=== PATIENT | female | born 1945 | race Caucasian/White ===

== ENCOUNTER 2022-06-03 12:00 | Inpatient (IN) | payer MEDICARE, BC ==
[~2022-06-03 12:00] MED LIST: Iopamidol-370 76% 500 ML 1 ML ONE
[2022-06-03 12:21] LABS: #Eosinphils 0.2 thou/uL (0.0-0.7); #Lymphocytes 2.1 thou/uL (1.20-3.40); #Monocytes 0.8 thou/uL (0.11-0.59); #Neutrophils 12.6 thou/uL (1.40-6.50); %Basophils 0.2 % (0.0-1.0); %Eosinophils 1.4 % (0.0-10.0); %Lymphocytes 13.2 % (21.0-51.0); %Monocytes 5.1 % (0.0-10.0); %Neutrophils 80.1 % (42.0-75.0); Hemoglobin 10.9 g/dL (12.0-16.0); Mean Corpuscular HGB CONC 33.9 g/dL (32.0-36.0); Mean Corpuscular Hemoglobin 31.8 pg (27.0-31.0); Mean Corpuscular Volume 93.7 fl (78.0-98.0); Platelet Count 325 10x3/uL (130-400); RBC Distribution Width 12.8 % (11.5-14.5); Red Blood Cell (RBC) Count 3.44 mill/uL (4.20-5.40); White Blood Cell (WBC) Count 15.7 10x3/uL (4.8-10.8)
[2022-06-03 12:30] LABS: PTT 44.1 sec (22.9-36.1); Prothrombin Time 14.2 sec (12.0-14.7)
[2022-06-03] MEDS ORDERED: Ondansetron PF 4 MG/2 ML Vial ONE (12:32)
[2022-06-03 12:35] LABS: INR-International Normal Ratio 1.1
[2022-06-03 12:40] LABS: ALT (SGPT) 31 U/L (8-55); AST (SGOT) 22 U/L (5-34); Alkaline Phosphatase 92 U/L (40-110); Anion Gap 21 mmol/L (10-20); BUN (Urea Nitrogen) 45 mg/dL (9.8-20.1); Bilirubin, Total 0.2 mg/dL (0.2-1.2); CK (CPK) 112 U/L (29-168); Calc. Creatinine Clearance 0 mL/min (70-130); Calcium 9.7 mg/dL (7.8-10.44); Carbon Dioxide 20 mmol/L (23-31); Chloride 98 mmol/L (98-107); Estimated GFR 34; Glucose 162 mg/dL (83-110); Potassium 5.8 mmol/L (3.5-5.1); Sodium 133 mmol/L (136-145)
[2022-06-03 13:00] LABS: Acetaminophen Less than 10.0 mcg/mL (10.0-30.0); Alcohol Less than 10 mg/dL (Less than 10); Salicylate Less than 8.0 mg/dL (15.0-30.0)
[2022-06-03] MEDS ORDERED: Aspirin Chewable 81 MG TAB ONE (13:24)
[2022-06-03 14:02] LABS: SARS-CoV-2 NAA Rapid Test Not Detected (NotDetected)
[2022-06-03 14:33] LABS: Bilirubin Negative (Negative); Blood, Urine Trace (Negative); Clarity Turbid (Clear); Glucose, Urine (Dipstick) Normal (Negative); Ketone, Urine Negative (Negative); Leukocyte 500 Leu/uL (Negative); Nitrite 2+ (Negative); Protein, Urine (Dipstick) 10 mg/dL (Neg-Trace); Specific Gravity, Urine 1.028 (1.002-1.036); Squamous Epithelial 0-3 HPF (0-3); Urobilinogen Normal mg/dL (Less than 2); WBC/HPF Greater than 50 HPF (0-3); pH, Urine 5.5 (5.0-9.0)
[2022-06-03 14:39] LABS: Bacteria/HPF 3+ HPF (None Seen)
[2022-06-03 14:40] LABS: Amphetamine Not Detected (NotDetected); Barbiturates Screen Not Detected (NotDetected); Benzodiazepine Screen Not Detected (NotDetected); Cocaine Metabolite Screen Not Detected (NotDetected); Methadone Not Detected (NotDetected); Methamphetamine Not Detected (NotDetected); Opiate Screen Detected (NotDetected); Oxycodone Screen Not Detected (NotDetected); Phencyclidine (PCP) Not Detected (NotDetected); THC/Cannabinoid Screen Not Detected (NotDetected); Tricyclic Screen Not Detected (NotDetected)
[2022-06-03] MEDS ORDERED: cefTRIAXone\\ROCEPHIN 1 GM VIAL ONE (15:25)
[2022-06-03 15:52] LABS: Anion Gap 19 mmol/L (10-20); BUN (Urea Nitrogen) 45 mg/dL (9.8-20.1); Calc. Creatinine Clearance 0 mL/min (70-130); Calcium 9.3 mg/dL (7.8-10.44); Carbon Dioxide 18 mmol/L (23-31); Chloride 98 mmol/L (98-107); Estimated GFR 38; Glucose 132 mg/dL (83-110); Sodium 129 mmol/L (136-145)
[2022-06-03 15:56] LABS: Potassium 6.1 mmol/L (3.5-5.1)
[2022-06-03 15:58] LABS: Troponin I 0.012 ng/mL (< 0.028)
[2022-06-03] MEDS ORDERED: Calcium Gluc 4.6 MEQ/10 ML (100 MG/ML) SLOW IVP SCH (16:19)
[2022-06-03] MEDS ORDERED: Insulin Regular 300 UNITS/3 ML VIAL IVP SCH (16:20)
[2022-06-03] MEDS ORDERED: Dextrose 50% Abboject 50 ML SYRINGE SLOW IVP SCH (16:21)
[2022-06-03] MEDS ORDERED: Ondansetron PF 4 MG/2 ML Vial IVP PRN (16:30)
[2022-06-03] MEDS ORDERED: Senokot S 8.6-50 MG TAB PO PRN (16:30)
[2022-06-03] MEDS ORDERED: Ondansetron ODT 4 MG TAB PO PRN (16:30)
[2022-06-03] MEDS ORDERED: Albuterol Sulfate 2.5 mg/0.5 ml Neb NEB SCH (16:30)
[2022-06-03] MEDS ORDERED: Sodium Chloride 0.9% 1,000 ML IV SCH (17:15)
[2022-06-03 18:02] VITALS: BMI 27.4
[2022-06-03 19:29] LABS: Magnesium 1.8 mg/dL (1.6-2.6)
[2022-06-03 19:34] LABS: Troponin I Less than 0.010 ng/mL (< 0.028)
[2022-06-03 19:34] LABS: Anion Gap 19 mmol/L (10-20); BUN (Urea Nitrogen) 46 mg/dL (9.8-20.1); Calc. Creatinine Clearance 31 mL/min (70-130); Calcium 9.6 mg/dL (7.8-10.44); Carbon Dioxide 16 mmol/L (23-31); Chloride 99 mmol/L (98-107); Estimated GFR 35; Potassium 5.1 mmol/L (3.5-5.1); Sodium 129 mmol/L (136-145)
[2022-06-03 19:39] LABS: Glucose 419 mg/dL (83-110)
[2022-06-03] MEDS ORDERED: Dextrose 50% Abboject 50 ML SYRINGE SLOW IVP PRN (19:50)
[2022-06-03] MEDS ORDERED: Dextrose 5% in Water 1,000 ML IV PRN (19:50)
[2022-06-03] MEDS: HumaLOG 300 UNITS/3 ML VIAL SC PRN (20:09)
[2022-06-03] MEDS: Enoxaparin Sodium 30 MG/0.3 ML SYRINGE SC SCH (20:14)
[2022-06-03] MEDS: Acetaminophen 325 MG TAB PO PRN (22:05)
[2022-06-03] MEDS ORDERED: Gabapentin 100 MG CAP PO SCH (23:45)
[2022-06-03] MEDS: tiZANidine HCl 4 MG TAB PO PRN (23:58)
[2022-06-04] MEDS ORDERED: Methyl Salicylate/Menthol 85 GM TUBE TOP PRN (02:17)
[2022-06-04] MEDS: Acetaminophen 325 MG TAB PO PRN (04:15)
[2022-06-04] MEDS ORDERED: Morphine 4 MG/ML VIAL SLOW IVP SCH (05:30)
[2022-06-04 05:46] LABS: Hemoglobin A1c 7.5 % (4.0-6.0)
[2022-06-04 06:02] LABS: Anion Gap 16 mmol/L (10-20); BUN (Urea Nitrogen) 44 mg/dL (9.8-20.1); Calc. Creatinine Clearance 39 mL/min (70-130); Calcium 9.1 mg/dL (7.8-10.44); Carbon Dioxide 19 mmol/L (23-31); Cardiac Risk 4.1 (Less than 4.5); Chloride 100 mmol/L (98-107); Cholesterol 95 mg/dl (< 200 Desired); Estimated GFR 46; Glucose 176 mg/dL (83-110); HDL Cholesterol 23 mg/dL (>60 Neg Risk); LDL Cholesterol, Calculated 50 mg/dL; Potassium 5.6 mmol/L (3.5-5.1); Sodium 129 mmol/L (136-145); Triglycerides 110 mg/dL (Less than 150)
[2022-06-04 06:19] LABS: Band 14 % (5-11); Eosinophils 1 % (0-10); Hemoglobin 9.9 g/dL (12.0-16.0); Lymphocytes 19 % (21-51); MDiff Complete? YES; Mean Corpuscular Hemoglobin 32.1 pg (27.0-31.0); Mean Corpuscular Volume 94.5 fl (78.0-98.0); Mean Platelet Volume 7.5 fL (7.4-10.4); Monocytes 9 % (0-10); Neutrophil 57 % (42-75); Platelet Count 300 10x3/uL (130-400); Platelet Morphology Comment Appears Adequate; RBC Distribution Width 12.8 % (11.5-14.5); RBC Morphology Normal; Red Blood Cell (RBC) Count 3.07 mill/uL (4.20-5.40); White Blood Cell (WBC) Count 15.4 10x3/uL (4.8-10.8)
[2022-06-04] MEDS: HumaLOG 300 UNITS/3 ML VIAL SC PRN ×3 (06:44→22:14)
[2022-06-04] MEDS ORDERED: LOKELMA 10 GM PACKET PO SCH (08:30)
[2022-06-04] MEDS ORDERED: Dextrose 50% Abboject 50 ML SYRINGE SLOW IVP SCH (08:30)
[2022-06-04] MEDS ORDERED: Insulin Regular 300 UNITS/3 ML VIAL IVP SCH (08:30)
[2022-06-04] MEDS: Gabapentin 100 MG CAP PO SCH ×3 (10:06→22:11)
[2022-06-04] MEDS: Dextrose 10% in Water 250 ML IV SCH ×6 (10:07→14:33)
[2022-06-04] MEDS: tiZANidine HCl 4 MG TAB PO PRN ×2 (10:39→22:21)
[2022-06-04] MEDS ORDERED: Acetaminophen/Codeine 30-300mg Tablet PO PRN (11:07)
[2022-06-04] MEDS ORDERED: HYDROcodone/Acetaminophen 10/325 mg Tablet PO SCH (15:15)
[2022-06-04] MEDS: cefTRIAXone\\ROCEPHIN 1 GM in Sodium Chloride 0.9% 100 ML IVPB SCH (17:03)
[2022-06-04] MEDS: Acetaminophen/Codeine 30-300mg Tablet PO PRN (22:11)
[2022-06-04] MEDS: Atorvastatin Calcium 40 MG TAB PO SCH (22:11)
[2022-06-04] MEDS: Enoxaparin Sodium 30 MG/0.3 ML SYRINGE SC SCH (22:12)
[2022-06-05] MEDS: Acetaminophen/Codeine 30-300mg Tablet PO PRN ×4 (04:26→22:49)
[2022-06-05] MEDS: HumaLOG 300 UNITS/3 ML VIAL SC PRN ×4 (05:50→22:46)
[2022-06-05 06:28] LABS: Mean Corpuscular HGB CONC 33.5 g/dL (32.0-36.0); Mean Corpuscular Hemoglobin 31.4 pg (27.0-31.0); Mean Corpuscular Volume 93.9 fl (78.0-98.0); Mean Platelet Volume 6.8 fL (7.4-10.4); Platelet Count 331 10x3/uL (130-400); RBC Distribution Width 12.9 % (11.5-14.5); Red Blood Cell (RBC) Count 3.18 mill/uL (4.20-5.40); White Blood Cell (WBC) Count 12.4 10x3/uL (4.8-10.8)
[2022-06-05 06:46] LABS: Anion Gap 15 mmol/L (10-20); BUN (Urea Nitrogen) 20 mg/dL (9.8-20.1); Calc. Creatinine Clearance 58 mL/min (70-130); Calcium 9.1 mg/dL (7.8-10.44); Carbon Dioxide 21 mmol/L (23-31); Chloride 101 mmol/L (98-107); Estimated GFR 75; Glucose 202 mg/dL (83-110); Sodium 132 mmol/L (136-145)
[2022-06-05 06:49] LABS: Band 16 % (5-11); Eosinophils 2 % (0-10); Hemoglobin 9.9 g/dL (12.0-16.0); Hypochromia SLIGHT = 6-15 cells (100X) (0-5/hpf); Lymphocytes 17 % (21-51); MDiff Complete? YES; Mean Corpuscular HGB CONC 32.7 g/dL (32.0-36.0); Mean Corpuscular Hemoglobin 30.7 pg (27.0-31.0); Mean Corpuscular Volume 94.1 fl (78.0-98.0); Monocytes 7 % (0-10); Neutrophil 58 % (42-75); Platelet Count 337 10x3/uL (130-400); Platelet Morphology Comment Appears Adequate; RBC Distribution Width 12.7 % (11.5-14.5); Red Blood Cell (RBC) Count 3.21 mill/uL (4.20-5.40); White Blood Cell (WBC) Count 12.5 10x3/uL (4.8-10.8)
[2022-06-05] MEDS: Gabapentin 100 MG CAP PO SCH ×3 (09:23→20:35)
[2022-06-05] MEDS: Acetaminophen 325 MG TAB PO PRN ×2 (09:25→20:36)
[2022-06-05] MEDS: Aspirin 81 mg Enteric Coated Tablet PO SCH (09:25)
[2022-06-05] MEDS: tiZANidine HCl 4 MG TAB PO PRN ×2 (10:59→20:36)
[2022-06-05] MEDS: cefTRIAXone\\ROCEPHIN 1 GM in Sodium Chloride 0.9% 100 ML IVPB SCH (15:38)
[2022-06-05] MEDS: metFORMIN 500 MG TAB PO SCH (16:49)
[2022-06-05] MEDS: Enoxaparin Sodium 30 MG/0.3 ML SYRINGE SC SCH (20:34)
[2022-06-05] MEDS: Senokot S 8.6-50 MG TAB PO SCH (20:35)
[2022-06-05] MEDS: Escitalopram Oxalate 10 mg Tablet PO SCH (20:36)
[2022-06-05] MEDS: Rosuvastatin 10 MG TAB PO SCH (22:47)
[2022-06-05] MEDS: Atorvastatin Calcium 40 MG TAB PO SCH (22:48)
[2022-06-06] MEDS ORDERED: HYDROcodone/Acetaminophen 5/325 mg Tablet PO SCH (03:15)
[2022-06-06 05:47] LABS: Hemoglobin 10.1 g/dL (12.0-16.0); Mean Corpuscular HGB CONC 33.1 g/dL (32.0-36.0); Mean Corpuscular Hemoglobin 30.9 pg (27.0-31.0); Mean Corpuscular Volume 93.4 fl (78.0-98.0); Mean Platelet Volume 6.9 fL (7.4-10.4); Platelet Count 361 10x3/uL (130-400); RBC Distribution Width 12.8 % (11.5-14.5); Red Blood Cell (RBC) Count 3.28 mill/uL (4.20-5.40); White Blood Cell (WBC) Count 10.9 10x3/uL (4.8-10.8)
[2022-06-06 06:04] LABS: Anion Gap 13 mmol/L (10-20); BUN (Urea Nitrogen) 20 mg/dL (9.8-20.1); Calc. Creatinine Clearance 62 mL/min (70-130); Calcium 9.3 mg/dL (7.8-10.44); Carbon Dioxide 23 mmol/L (23-31); Chloride 103 mmol/L (98-107); Estimated GFR 81; Glucose 179 mg/dL (83-110); Potassium 4.9 mmol/L (3.5-5.1); Sodium 134 mmol/L (136-145)
[2022-06-06] MEDS: Acetaminophen/Codeine 30-300mg Tablet PO PRN (06:14)
[2022-06-06] MEDS: HumaLOG 300 UNITS/3 ML VIAL SC PRN ×2 (06:15→11:01)
[2022-06-06] MEDS: Levothyroxine Sodium 88 MCG TAB PO SCH (06:15)
[2022-06-06 06:55] LABS: Band 9 % (5-11); Eosinophils 2 % (0-10); Lymphocytes 12 % (21-51); MDiff Complete? YES; Metamyelocyte 3 % (0-0); Monocytes 3 % (0-10); Myelocyte 6 % (0-0); Neutrophil 65 % (42-75); Platelet Morphology Comment Appears Adequate; Polychromasia SLIGHT = 2-3 cells (100X) (0-2/hpf)
[2022-06-06] MEDS: metFORMIN 500 MG TAB PO SCH ×2 (08:48→16:15)
[2022-06-06] MEDS: Senokot S 8.6-50 MG TAB PO SCH ×2 (08:48→22:10)
[2022-06-06] MEDS: Losartan 25 MG TAB PO SCH (08:48)
[2022-06-06] MEDS: Aspirin 81 mg Enteric Coated Tablet PO SCH (08:49)
[2022-06-06] MEDS: Fish Oil 1,000 MG CAP PO SCH (08:49)
[2022-06-06] MEDS: Gabapentin 100 MG CAP PO SCH ×3 (08:49→21:22)
[2022-06-06] MEDS: tiZANidine HCl 4 MG TAB PO PRN (08:49)
[2022-06-06] MEDS ORDERED: HYDROcodone/Acetaminophen 7.5/325 mg Tablet PO PRN (10:44)
[2022-06-06] MEDS: HYDROcodone/Acetaminophen 7.5/325 mg Tablet PO PRN ×3 (11:02→21:21)
[2022-06-06] MEDS: Lidocaine 5% Patch TD SCH (12:53)
[2022-06-06] MEDS ORDERED: Morphine 4 MG/ML VIAL SLOW IVP PRN (15:01)
[2022-06-06] MEDS: cefTRIAXone\\ROCEPHIN 1 GM in Sodium Chloride 0.9% 100 ML IVPB SCH (16:15)
[2022-06-06] MEDS: Rosuvastatin 10 MG TAB PO SCH (21:22)
[2022-06-06] MEDS: Atorvastatin Calcium 40 MG TAB PO SCH (21:23)
[2022-06-06] MEDS: Enoxaparin Sodium 30 MG/0.3 ML SYRINGE SC SCH (21:23)
[2022-06-06] MEDS: Escitalopram Oxalate 10 mg Tablet PO SCH (21:23)
[2022-06-06] MEDS ORDERED: Transdermal Patch Removal TOP SCH (23:59)
[2022-06-07] MEDS: HYDROcodone/Acetaminophen 7.5/325 mg Tablet PO PRN ×4 (04:06→17:46)
[2022-06-07] MEDS: Levothyroxine Sodium 88 MCG TAB PO SCH (06:09)
[2022-06-07] MEDS: HumaLOG 300 UNITS/3 ML VIAL SC PRN (06:09)
[2022-06-07] MEDS: tiZANidine HCl 4 MG TAB PO PRN ×2 (06:13→17:56)
[2022-06-07] MEDS: Aspirin 81 mg Enteric Coated Tablet PO SCH (08:58)
[2022-06-07] MEDS: Losartan 25 MG TAB PO SCH (08:58)
[2022-06-07] MEDS: metFORMIN 500 MG TAB PO SCH ×2 (08:59→17:44)
[2022-06-07] MEDS: Gabapentin 100 MG CAP PO SCH ×2 (08:59→15:48)
[2022-06-07] MEDS: Fish Oil 1,000 MG CAP PO SCH (08:59)
[2022-06-07] MEDS: Senokot S 8.6-50 MG TAB PO SCH (09:12)
[2022-06-07] MEDS: Lidocaine 5% Patch TD SCH (11:48)
[2022-06-07] MEDS: cefTRIAXone\\ROCEPHIN 1 GM in Sodium Chloride 0.9% 100 ML IVPB SCH (15:49)
[2022-06-07 16:12] VITALS: BP 147/75; TEMP 97.3
== END 2022-06-07 19:20 | DRG 690 ==
LOC: ERS 12:00 → NEURO 15:23 → OBSVTOIN 06-05 09:17
PROVIDERS: ADMIT Hospitalist; ATTEND Family Medicine
DX: N39.0 Urinary tract infection, site not specified (principal); N17.9 Acute kidney failure, unspecified; E87.1 Hypo-osmolality and hyponatremia; G81.91 Hemiplegia, unspecified affecting right dominant side; Z66 Do not resuscitate; E78.5 Hyperlipidemia, unspecified; E11.40 Type 2 diabetes mellitus with diabetic neuropathy, unspecified; E03.9 Hypothyroidism, unspecified; K21.9 Gastro-esophageal reflux disease without esophagitis; R47.81 Slurred speech; E87.5 Hyperkalemia; D72.829 Elevated white blood cell count, unspecified; D64.9 Anemia, unspecified; B96.20 Unspecified Escherichia coli [E. coli] as the cause of diseases classified elsewhere; M48.061 Spinal stenosis, lumbar region without neurogenic claudication; E11.65 Type 2 diabetes mellitus with hyperglycemia; M51.26 Other intervertebral disc displacement, lumbar region; N18.9 Chronic kidney disease, unspecified; I12.9 Hypertensive chronic kidney disease with stage 1 through stage 4 chronic kidney disease, or unspecified chronic kidney disease; R29.6 Repeated falls; Z98.1 Arthrodesis status; Z88.1 Allergy status to other antibiotic agents; Z79.890 Hormone replacement therapy; Z79.899 Other long term (current) drug therapy; Z90.49 Acquired absence of other specified parts of digestive tract; Z98.51 Tubal ligation status; Z98.890 Other specified postprocedural states; Z20.822 Contact with and (suspected) exposure to COVID-19
CPT/HCPCS: 36415; 36416; 70450; 70496; 70498; 70551; 71045; 72148; 80048; 80053; 80061; 80306; 80307; 81003; 81015; 82550; 83036; 83735; 83930; 83935; 84300; 84484; 85025; 85610; 85730; 87040; 87077; 87086; 87186; 93005; 94640; J0610; J0696; J1650; J1815; J2270; J2405; J3490; J7050; J7611; J7999; Q9967; U0002

== ENCOUNTER 2022-07-18 09:15 | Outpatient (CLI) | payer MEDICARE, BC ==
[2022-07-18 10:23] LABS: Anion Gap 16 mmol/L (10-20); BUN (Urea Nitrogen) 17 mg/dL (9.8-20.1); Calc. Creatinine Clearance 0 mL/min (70-130); Calcium 9.7 mg/dL (7.8-10.44); Carbon Dioxide 22 mmol/L (23-31); Chloride 100 mmol/L (98-107); Estimated GFR 69; Glucose 136 mg/dL (83-110); Potassium 4.1 mmol/L (3.5-5.1); Sodium 134 mmol/L (136-145)
== END 2022-07-18 09:16 | disposition home or self-care (01) ==
LOC: LABBT 09:15
PROVIDERS: ATTEND Neurological Surgery
DX: Z01.812 Encounter for preprocedural laboratory examination (principal); M51.26 Other intervertebral disc displacement, lumbar region
CPT/HCPCS: 80048

== ENCOUNTER 2022-07-21 05:40 | Day surgery (SDC) | payer MEDICARE, BC ==
[2022-07-19 15:17] VITALS: BMI 26.4
[2022-07-21] MEDS ORDERED: Thrombin 5000 UNITS/5 ML VIAL ONE (06:30)
[2022-07-21] MEDS ORDERED: Bupivacaine HCl 0.5%/Epinephrine 1:200,000/PF 30 ml Vial ONE (06:30)
[2022-07-21] MEDS ORDERED: CEFAZOLIN 2 GM VIAL ONE ×2 (06:49→10:36)
[2022-07-21] MEDS ORDERED: Sodium Chloride 0.9% 100 ML ONE ×2 (06:49→10:36)
[2022-07-21] MEDS ORDERED: Famotidine/PF 20 mg/2ml Vial ONE (06:54)
[2022-07-21] MEDS ORDERED: Scopolamine 1.5 mg/72 hour Patch ONE (06:54)
[2022-07-21] MEDS ORDERED: Fentanyl 250 MCG/5 ML VIAL ONE (06:55)
[2022-07-21] MEDS ORDERED: SUGAMMADEX SODIUM 200 MG/2 ML VIAL ONE (06:55)
[2022-07-21] MEDS ORDERED: Glycopyrrolate 0.2 MG/ML 5 ML SYRINGE ONE (07:08)
[2022-07-21] MEDS ORDERED: Dexamethasone 20 MG/5 ML VIAL ONE (07:08)
[2022-07-21] MEDS ORDERED: diphenhydrAMINE 50 MG/ML VIAL ONE (07:08)
[2022-07-21] MEDS ORDERED: Ketorolac Tromethamine 30 MG/ML VIAL ONE (07:08)
[2022-07-21] MEDS ORDERED: ePHEDrine 50 MG/ML VIAL ONE (07:08)
[2022-07-21] MEDS ORDERED: NEOSTIGMINE 3 MG/3 ML SYR 3 MG/3 ML SYRINGE ONE (07:08)
[2022-07-21] MEDS ORDERED: Ondansetron PF 4 MG/2 ML Vial ONE (07:08)
[2022-07-21] MEDS ORDERED: Lidocaine 1% PF 5 ML VIAL ONE (07:08)
[2022-07-21] MEDS ORDERED: Metoclopramide HCl 10 MG/2 ML VIAL ONE (07:08)
[2022-07-21] MEDS ORDERED: PROPOFOL 200 MG/20 ML VIAL ONE (07:08)
[2022-07-21] MEDS ORDERED: Fentanyl 100 MCG/2 ML VIAL ONE (08:57)
[2022-07-21] MEDS ORDERED: Morphine 4 MG/ML VIAL ONE (09:02)
[2022-07-21] MEDS ORDERED: Morphine 2 MG/ML VIAL ONE (09:14)
[2022-07-21] MEDS ORDERED: HYDROcodone/Acetaminophen 5/325 mg Tablet ONE (10:33)
== END 2022-07-21 12:55 | disposition home or self-care (01) ==
LOC: SDC 05:40
PROVIDERS: ATTEND Neurological Surgery
PROC: 01NB0ZZ Release Lumbar Nerve, Open Approach (ICD-10-PCS; principal; 2022-07-21)
DX: M48.061 Spinal stenosis, lumbar region without neurogenic claudication (principal); M51.16 Intervertebral disc disorders with radiculopathy, lumbar region; I10 Essential (primary) hypertension; E11.9 Type 2 diabetes mellitus without complications; E78.5 Hyperlipidemia, unspecified; M19.90 Unspecified osteoarthritis, unspecified site; K21.9 Gastro-esophageal reflux disease without esophagitis; Z79.82 Long term (current) use of aspirin; Z79.84 Long term (current) use of oral hypoglycemic drugs; Z79.890 Hormone replacement therapy; Z79.899 Other long term (current) drug therapy; Z88.1 Allergy status to other antibiotic agents; Z88.5 Allergy status to narcotic agent; Z98.1 Arthrodesis status
CPT/HCPCS: 63047; C1713; J1100; J1200; J1885; J2270; J2272; J2405; J2704; J2765; J3010; J3490; S0028

== ENCOUNTER 2022-07-26 09:43 | Emergency (ER) | payer MEDICARE, BC ==
[2022-07-26 10:41] LABS: #Eosinphils 0.2 thou/uL (0.0-0.7); #Lymphocytes 1.5 thou/uL (1.20-3.40); #Monocytes 0.6 thou/uL (0.11-0.59); #Neutrophils 5.8 thou/uL (1.40-6.50); %Basophils 0.4 % (0.0-1.0); %Eosinophils 2.4 % (0.0-10.0); %Lymphocytes 18.2 % (21.0-51.0); %Monocytes 7.7 % (0.0-10.0); %Neutrophils 71.3 % (42.0-75.0); Hemoglobin 9.4 g/dL (12.0-16.0); Mean Corpuscular HGB CONC 33.5 g/dL (32.0-36.0); Mean Corpuscular Hemoglobin 31.7 pg (27.0-31.0); Mean Corpuscular Volume 94.7 fl (78.0-98.0); Mean Platelet Volume 7.3 fL (7.4-10.4); Platelet Count 305 10x3/uL (130-400); RBC Distribution Width 12.9 % (11.5-14.5); Red Blood Cell (RBC) Count 2.96 mill/uL (4.20-5.40); White Blood Cell (WBC) Count 8.1 10x3/uL (4.8-10.8)
[2022-07-26 10:47] LABS: ALT (SGPT) 14 U/L (8-55); AST (SGOT) 18 U/L (5-34); Albumin 4.1 g/dL (3.4-4.8); Alkaline Phosphatase 67 U/L (40-110); Anion Gap 15 mmol/L (10-20); BUN (Urea Nitrogen) 8 mg/dL (9.8-20.1); Bilirubin, Total 0.3 mg/dL (0.2-1.2); Calc. Creatinine Clearance 0 mL/min (70-130); Calcium 9.7 mg/dL (7.8-10.44); Carbon Dioxide 23 mmol/L (23-31); Chloride 101 mmol/L (98-107); Estimated GFR 82; Globulin 2.5 g/dL (2.4-3.5); Glucose 141 mg/dL (83-110); Lipase 10 U/L (8-78); Potassium 4.4 mmol/L (3.5-5.1); Protein, Total 6.6 g/dL (5.8-8.1); Sodium 135 mmol/L (136-145)
[2022-07-26] MEDS ORDERED: Ondansetron PF 4 MG/2 ML Vial ONE (12:22)
[2022-07-26 13:08] LABS: Bilirubin Negative (Negative); Blood, Urine Negative (Negative); Clarity Clear (Clear); Glucose, Urine (Dipstick) Normal (Negative); Ketone, Urine Negative (Negative); Leukocyte Negative Leu/uL (Negative); Nitrite Negative (Negative); Protein, Urine (Dipstick) Negative (Neg-Trace); Specific Gravity, Urine 1.008 (1.002-1.036); Urobilinogen Normal mg/dL (Less than 2); pH, Urine 6.5 (5.0-9.0)
== END 2022-07-26 14:55 | disposition home or self-care (01) ==
LOC: ERS 09:43
DX: R11.10 Vomiting, unspecified (principal); E86.0 Dehydration; I10 Essential (primary) hypertension; E11.9 Type 2 diabetes mellitus without complications; Z79.84 Long term (current) use of oral hypoglycemic drugs; Z79.899 Other long term (current) drug therapy; Z79.82 Long term (current) use of aspirin
CPT/HCPCS: 36415; 74177; 80053; 81003; 82550; 83605; 83690; 84484; 85025; 93005; 96361; 96374; J2405; Q9967

== ENCOUNTER 2022-08-12 11:41 | Emergency (ER) | payer MEDICARE, BC ==
[2022-08-12] MEDS ORDERED: Ondansetron PF 4 MG/2 ML Vial ONE (12:50)
[2022-08-12 12:59] LABS: #Eosinphils 0.1 thou/uL (0.0-0.7); #Lymphocytes 1.5 thou/uL (1.20-3.40); #Monocytes 0.4 thou/uL (0.11-0.59); %Basophils 0.6 % (0.0-1.0); %Eosinophils 2.8 % (0.0-10.0); %Lymphocytes 29.1 % (21.0-51.0); %Monocytes 8.2 % (0.0-10.0); %Neutrophils 59.4 % (42.0-75.0); Mean Corpuscular HGB CONC 33.3 g/dL (32.0-36.0); Mean Corpuscular Hemoglobin 31.2 pg (27.0-31.0); Mean Corpuscular Volume 93.7 fl (78.0-98.0); Mean Platelet Volume 7.4 fL (7.4-10.4); Platelet Count 386 10x3/uL (130-400); RBC Distribution Width 12.4 % (11.5-14.5); Red Blood Cell (RBC) Count 3.51 mill/uL (4.20-5.40)
[2022-08-12 13:16] LABS: AST (SGOT) 18 U/L (5-34); Albumin 4.9 g/dL (3.4-4.8); Anion Gap 16 mmol/L (10-20); BUN (Urea Nitrogen) 12 mg/dL (9.8-20.1); Bilirubin, Total 0.3 mg/dL (0.2-1.2); Calc. Creatinine Clearance 0 mL/min (70-130); Calcium 10.2 mg/dL (7.8-10.44); Carbon Dioxide 23 mmol/L (23-31); Chloride 101 mmol/L (98-107); Estimated GFR 56; Globulin 2.8 g/dL (2.4-3.5); Glucose 125 mg/dL (83-110); Potassium 5.5 mmol/L (3.5-5.1); Protein, Total 7.7 g/dL (5.8-8.1); Sodium 134 mmol/L (136-145)
[2022-08-12 13:25] LABS: ALT (SGPT) 15 U/L (8-55); Alkaline Phosphatase 66 U/L (40-110); Lipase 14 U/L (8-78)
[2022-08-12 14:53] LABS: Free T4 (Free Thyroxine) 1.4 ng/dL (0.70-1.48); Thyroid Stimulating Hormone 0.498 uIU/mL (0.35-4.94)
[2022-08-12 15:03] LABS: Bilirubin Negative (Negative); Blood, Urine Negative (Negative); Clarity Clear (Clear); Glucose, Urine (Dipstick) Normal (Negative); Ketone, Urine Negative (Negative); Leukocyte Negative Leu/uL (Negative); Nitrite Negative (Negative); Protein, Urine (Dipstick) Negative (Neg-Trace); Urobilinogen Normal mg/dL (Less than 2)
== END 2022-08-12 15:34 | disposition home or self-care (01) ==
LOC: ERS 11:41
DX: Z71.1 Person with feared health complaint in whom no diagnosis is made (principal); E11.9 Type 2 diabetes mellitus without complications; I10 Essential (primary) hypertension; E03.9 Hypothyroidism, unspecified; K21.9 Gastro-esophageal reflux disease without esophagitis; E78.00 Pure hypercholesterolemia, unspecified; K58.9 Irritable bowel syndrome, unspecified; Z79.84 Long term (current) use of oral hypoglycemic drugs; Z79.899 Other long term (current) drug therapy
CPT/HCPCS: 76770; 80053; 81003; 83690; 84439; 84443; 84484; 85025; 93005; 96361; 96374; J2405

== ENCOUNTER 2022-09-25 14:40 | Outpatient (CLI) | payer MEDICARE, BC | END 2022-09-25 14:41 | disposition home or self-care (01) | LOC: TBSIIMAG 14:40 | PROVIDERS: ATTEND Neurological Surgery | DX: M54.16 Radiculopathy, lumbar region (principal); M47.816 Spondylosis without myelopathy or radiculopathy, lumbar region; Z98.890 Other specified postprocedural states | CPT/HCPCS: 72148 ==

== ENCOUNTER 2023-11-02 14:14 | Outpatient (CLI) | payer MEDICARE, BC ==
[2023-11-02 15:30] LABS: Hematocrit 31.2 % (34.9-44.5); Hemoglobin 10.9 g/dL (12.0-15.5); Mean Corpuscular HGB CONC 34.9 g/dL (32.0-36.0); Mean Corpuscular Hemoglobin 31.1 pg (27.0-33.0); Mean Corpuscular Volume 88.9 fl (81.6-98.3); Mean Platelet Volume 9.9 fl (7.4-10.4); Platelet Count 289 10x3/uL (150-450); RBC Distribution Width 13.3 % (11.5-14.5); Red Blood Cell (RBC) Count 3.51 10x6/uL (3.90-5.03); White Blood Cell (WBC) Count 6.9 10x3/uL (3.5-10.5)
[2023-11-02 15:51] LABS: Anion Gap 19 mmol/L (10-20); BUN (Urea Nitrogen) 13 mg/dL (9.8-20.1); Calc. Creatinine Clearance 0 mL/min (70-130); Calcium 9.6 mg/dL (7.8-10.44); Carbon Dioxide 17 mmol/L (23-31); Chloride 97 mmol/L (98-107); Estimated GFR 72; Glucose 148 mg/dL (83-110); Potassium 4.7 mmol/L (3.5-5.1); Sodium 128 mmol/L (136-145)
== END 2023-11-02 14:15 | disposition home or self-care (01) ==
LOC: LABBT 14:14
PROVIDERS: ATTEND Neurological Surgery
DX: Z01.818 Encounter for other preprocedural examination (principal)
CPT/HCPCS: 80048; 85027; 93005; 93010